=== PATIENT | male | born 1995 | race Caucasian/White ===

== ENCOUNTER → 2017-10-17 15:47 | Outpatient (CLI) | payer OTHER, SELFPAY ==
[2017-10-17 18:26] LABS: Thyroid Stim Hormone (TSH) 2.37 uIU/mL (0.358-3.74)
== END ==
PROVIDERS: Family Provider Family Medicine; PCP Family Medicine; Visit Provider Family Medicine
DX: F63.9 Impulse disorder, unspecified (principal)
CPT/HCPCS: 36415; 84443

== ENCOUNTER 2021-10-03 16:07 | Outpatient (CLI) | payer BC, SELFPAY | END 2021-10-03 23:59 | disposition short-term general hospital (02) | PROVIDERS: PCP Family Medicine; Referring Provider Family Medicine; Visit Provider Family Medicine | DX: Z20.822 Contact with and (suspected) exposure to COVID-19 (principal) | CPT/HCPCS: 87635; U0003; U0005 ==